=== PATIENT | male | born 1975 | race Two or more races ===

== ENCOUNTER 2016-10-11 10:25 | Emergency (ER) | payer OTHER ==
[2016-10-11 11:27] LABS: ABSOLUTE NEUTROPHIL COUNT 6.4 K/mm3 (1.8-7.7); BASO # 0.1 K/mm3 (0.0-0.2); BASO % 0.6 % (0.2-1.0); EOS % 0.5 % (0.9-2.9); HEMATOCRIT 42.8 % (32.0-52.0); HEMOGLOBIN 14.2 gm/l (14.0-18.0); IMM NEUT% 0.2 % (0-1); LYMPH # 1.4 (1.0-4.8); LYMPH % 16.8 % (15-45); MEAN CELL VOLUME 87.3 fl (80.0-94.0); MEAN CORPUSCULAR HGB CONC 33.2 g/dl (33.0-37.0); MONO # 0.4 (0.0-0.8); MONO % 4.2 % (4-12); NEUT % 77.7 % (43-75); PLATELET COUNT 244 K/mm3 (130-400); RED CELL DISTRIBUTION WIDTH 13.2 % (11.5-14.5)
[2016-10-11 11:28] LABS: SPECIFIC GRAVITY 1.015 (1.001-1.030); URINE BILIRUBIN NEGATIVE (NEGATIVE); URINE BLOOD 4+ (NEGATIVE); URINE GLUCOSE (UA) NEGATIVE (NEGATIVE); URINE LEUKOCYTE ESTERASE NEGATIVE (NEGATIVE); URINE NITRITE NEGATIVE (NEGATIVE); URINE PROTEIN 1+ (NEGATIVE); URINE UROBILINOGEN NORMAL (0-1 mg/dl)
[2016-10-11 11:41] LABS: URINE APPEARANCE CLEAR; URINE BACTERIA RARE; URINE COLOR YELLOW; URINE EPITHELIAL CELLS RARE /hpf; URINE RBC 20-30 /hpf; URINE WBC NEG /hpf
[2016-10-11 11:53] LABS: ALB/GLOB RATIO 1.2 (>1.0); ALBUMIN 4.5 gm/dL (3.5-5.7); CALCIUM 9.7 mg/dL (8.6-10.3)
[2016-10-11] MEDS ORDERED: ONDANSETRON 4 MG/2ML 2 ML VIAL ONE (12:04)
[2016-10-11] MEDS ORDERED: DIAZEPAM 5 MG/ML SYRINGE 2 ML ONE (12:04)
[2016-10-11] MEDS ORDERED: SODIUM CHLORIDE 0.9% 1,000 ML ONE (12:04)
[2016-10-11] MEDS ORDERED: MECLIZINE HCL 25 MG TABLET ONE (12:04)
== END 2016-10-11 13:33 | disposition home or self-care (01) ==
LOC: ED 10:25
DX: J11.1 Influenza due to unidentified influenza virus with other respiratory manifestations (principal); I10 Essential (primary) hypertension; E11.9 Type 2 diabetes mellitus without complications; Z79.84 Long term (current) use of oral hypoglycemic drugs
CPT/HCPCS: 85025; 80053; 81001; 99284; 96360; 82962; 93005; 99283; A9270; J7030

== ENCOUNTER 2016-10-26 09:29 | Emergency (ER) | payer OTHER ==
[2016-10-26 10:11] LABS: ABSOLUTE NEUTROPHIL COUNT 5.9 K/mm3 (1.8-7.7); BASO # 0.1 K/mm3 (0.0-0.2); BASO % 0.6 % (0.2-1.0); EOS # 0.1 (0.0-0.5); EOS % 0.8 % (0.9-2.9); HEMATOCRIT 42.3 % (32.0-52.0); IMM NEUT% 0.5 % (0-1); LYMPH % 23.5 % (15-45); MEAN CELL VOLUME 86.7 fl (80.0-94.0); MEAN CORPUSCULAR HEMOGLOBIN 28.7 pg (27.0-31.0); MEAN CORPUSCULAR HGB CONC 33.1 g/dl (33.0-37.0); MEAN PLATELET VOLUME 9.6 fl (7.4-10.4); MONO # 0.4 (0.0-0.8); NEUT % 69.6 % (43-75); PLATELET COUNT 243 K/mm3 (130-400)
[2016-10-26] MEDS ORDERED: METOPROLOL TARTRATE 1 MG/ML 5ML VIAL ONE ×2 (10:14→10:32)
[2016-10-26 10:34] LABS: ALB/GLOB RATIO 1.2 (>1.0); ALBUMIN 4.2 gm/dL (3.5-5.7); CALCIUM 9.2 mg/dL (8.6-10.3)
[2016-10-26 10:35] LABS: TROPONIN I 0.01 ng/ml (0.0-0.06)
[2016-10-26 10:38] LABS: CKMB ISOENZYME 2.5 ng/ml (0.6-6.3)
[2016-10-26 10:57] LABS: INR 3.7; PROTHROMBIN TIME 41.6 SECONDS (9.3-11.4)
[2016-10-26] MEDS ORDERED: SODIUM CHLORIDE 0.9% 500 ML ONE (11:20)
[2016-10-26] MEDS ORDERED: PROPOFOL 0 ML IV ONE (11:20)
[2016-10-26] MEDS ORDERED: PROPOFOL 20 ML IV ONE (11:35)
[2016-10-26] MEDS ORDERED: SODIUM CHLORIDE 0.9% 1,000 ML ONE (11:51)
[2016-10-26] MEDS ORDERED: ETOMIDATE 2 MG/ML 10ML VIAL IV ONE (11:53)
== END 2016-10-26 13:21 | disposition home or self-care (01) ==
LOC: ED 09:29
DX: I48.0 Paroxysmal atrial fibrillation (principal); E11.9 Type 2 diabetes mellitus without complications; I10 Essential (primary) hypertension; E66.9 Obesity, unspecified; Z79.84 Long term (current) use of oral hypoglycemic drugs; Z79.01 Long term (current) use of anticoagulants

== ENCOUNTER 2016-11-08 09:20 | Emergency (ER) | payer OTHER ==
[2016-11-08] MEDS ORDERED: MECLIZINE HCL 25 MG TABLET ONE (10:11)
[2016-11-08] MEDS ORDERED: SODIUM CHLORIDE 0.9% 1,000 ML ONE (10:11)
[2016-11-08 10:15] LABS: I-STAT CREATININE 0.9 mg/dL (0.6-1.3)
[2016-11-08 10:16] LABS: ABSOLUTE NEUTROPHIL COUNT 4.6 K/mm3 (1.8-7.7); BASO % 0.4 % (0.2-1.0); EOS # 0.1 (0.0-0.5); EOS % 0.7 % (0.9-2.9); HEMATOCRIT 40.6 % (32.0-52.0); HEMOGLOBIN 13.6 gm/l (14.0-18.0); IMM NEUT% 0.4 % (0-1); LYMPH # 2.6 (1.0-4.8); LYMPH % 33.5 % (15-45); MEAN CELL VOLUME 86.4 fl (80.0-94.0); MEAN CORPUSCULAR HEMOGLOBIN 28.9 pg (27.0-31.0); MEAN CORPUSCULAR HGB CONC 33.5 g/dl (33.0-37.0); MEAN PLATELET VOLUME 9.7 fl (7.4-10.4); MONO # 0.4 (0.0-0.8); PLATELET COUNT 210 K/mm3 (130-400)
--- NOTE | 2016-11-08 10:16 | CT ---
HEAD W/O CON COMPARISON: None HISTORY: Dizziness. TECHNIQUE: Using a [employer] Aqu[employer] [address] scanner, images were obtained through the head. An automated dose reduction technique was used to minimize patient radiation dose. DOSE INFORMATION: CTDIvol (mGy): 51.70 DLP(mGycm): 938.90 FINDINGS: Mass: None Intracranial Hemorrhage: None Acute Infarction: None Cerebral hemispheres: Normal Basal ganglia: Normal Thalami: Normal Brainstem: Normal Cerebellum: Normal Ventricles: Normal Basilar cisterns: Normal Corpus callosum: Normal Pituitary fossa: Normal Middle ears and mastoid air cells: Normal Orbits and sinuses: Normal Skull and scalp: Normal Dural sinuses and vessels: Normal IMPRESSION: Normal study. The report was sent to the emergency department electronic medical record system, 11/08/2016 at 10:18
[2016-11-08 10:45] LABS: TROPONIN I < 0.01 ng/ml (0.0-0.06)
[2016-11-08 10:48] LABS: CKMB ISOENZYME 2.3 ng/ml (0.6-6.3)
[2016-11-08] MEDS ORDERED: ACETAMINOPHEN 500 MG TABLET ONE (11:38)
[2016-11-08 12:05] LABS: INR 2.42; PROTHROMBIN TIME 26.7 SECONDS (9.3-11.4)
[2016-11-09 17:39] LABS: ALB/GLOB RATIO 1.3 (>1.0); ALBUMIN 4.4 gm/dL (3.5-5.7)
== END 2016-11-08 11:49 | disposition home or self-care (01) ==
LOC: ED 09:20
DX: E11.65 Type 2 diabetes mellitus with hyperglycemia (principal); I10 Essential (primary) hypertension; E66.9 Obesity, unspecified; I48.91 Unspecified atrial fibrillation; Z79.01 Long term (current) use of anticoagulants; Z79.84 Long term (current) use of oral hypoglycemic drugs; Z95.810 Presence of automatic (implantable) cardiac defibrillator
CPT/HCPCS: 85025; 82553; 80053; 85610; 84484; 70450; 99284 ×2; 96360; 93005; A9270 ×2; J7030